=== PATIENT | male | born 1955 | race African-American/Black ===

== ENCOUNTER 2019-05-31 00:25 | Emergency (ER) | payer MEDICAID ==
[~2019-05-31] VITALS: Ht 180.3 cm; Wt 61.2 kg
--- NOTE | 2019-05-31 00:30 | NUR ---
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 DEBI YANEZ. NOTED ABRASION ABOVE R EYE. PT AAOX4. RESPIRATIONS EVEN AND UNLABORED. PLACED ON MONITOR, WILL CONTINUE TO MONITOR
--- NOTE | 2019-05-31 00:57 | NUR ---
PER VERBAL MD ORDER, PT WILL TAKE HOME MEDICATION OF METROPOLOL AND AMLODIPINE. CURRENT BP 166/93
--- NOTE | 2019-05-31 00:58 | NUR ---
PT BROUGHT BY RADIOLOGY TO CT
--- NOTE | 2019-05-31 01:09 | NUR ---
PT RETURNED FROM CT
--- NOTE | 2019-05-31 02:39 | NUR ---
Patient discharged to home in stable condition. Written and verbal after care instructions given. Patient verbalizes understanding of instruction.Pt ambulatory with a steady gait
[2019-05-31 02:43] VITALS: BP 159/84
== END 2019-05-31 02:43 | disposition home or self-care (01) ==
LOC: ER 00:28
DX: S00.11XA Contusion of right eyelid and periocular area, initial encounter (principal); I10 Essential (primary) hypertension; J44.9 Chronic obstructive pulmonary disease, unspecified; G62.9 Polyneuropathy, unspecified; F17.200 Nicotine dependence, unspecified, uncomplicated; W01.0XXA Fall on same level from slipping, tripping and stumbling without subsequent striking against object, initial encounter; Y93.89 Activity, other specified; Y92.89 Other specified places as the place of occurrence of the external cause; Y99.8 Other external cause status
CPT/HCPCS: 70450; 70480; 99284; A6403